=== PATIENT | male | born 1955 | race Asian ===

== ENCOUNTER 2019-03-13 20:11 | Emergency (ER) | payer OTHER ==
[~2019-03-13] VITALS: Ht 162.6 cm; Wt 59.0 kg
[2019-03-13 21:00] VITALS: BP_SYST 126
--- NOTE | 2019-03-13 22:11 | NUR ---
Pt ambulatory to bed 3 for evaluation
--- NOTE | 2019-03-13 22:11 | NUR ---
DMITRY Soler at bedside examining patient.
--- NOTE | 2019-03-13 22:26 | NUR ---
Pt brought self to ED. Pt awake, alert, oriented x4. Pt states that he was eating fish today, and he feels that he swallowed a small fishbone. Pt states that he feels irritation in the front of his throat, and he thinks it is a fish bone. pt Denies shortness of breath, Chest pain, nausea, vomiting, diarrhea, dizziness, any other complaints at this time. Pt resting in ED bed, no acute distress. Pt VSS
--- NOTE | 2019-03-13 22:35 | NUR ---
Pt given viscous lidocaine to swish/gargle. Pt performed gargle and spit medication out into receptacle. Pt tolerated prodecure well. Pt stated relief from pain.
[2019-03-13 22:45] VITALS: BP_SYST 126
[2019-03-13] MEDS ORDERED: LIDOCAINE VISCOUS 2%, 15 ML UDC MM ONE (22:45)
--- NOTE | 2019-03-13 22:45 | NUR ---
Patient given written and verbal discharge instructions and verbalizes understanding. ER MD discussed with patient the results and treatment provided, ER MD explained the patient that there was no foreign body present on CT scan. Patient in stable condition. ID arm band removed. No IV No RX given. Patient educated on pain management and to follow up with PMD. Pain Scale 0/10. Opportunity for questions provided and answered.
--- NOTE | 2019-03-13 23:00 | NUR ---
Note undone in EDM - 03/14/19 at 0450 by [email or web address] Pt given viscous lidocaine to swish/gargle. Pt performed gargle and spit medication out into receptacle. Pt tolerated prodecure well. Pt stated relief from pain.
== END 2019-03-13 22:45 | disposition home or self-care (01) ==
LOC: SED 20:11
DX: T18.9XXA Foreign body of alimentary tract, part unspecified, initial encounter (principal); I10 Essential (primary) hypertension; X58.XXXA Exposure to other specified factors, initial encounter; Y93.89 Activity, other specified; Y92.89 Other specified places as the place of occurrence of the external cause; Y99.8 Other external cause status
CPT/HCPCS: 70490; 99284; J2001

== ENCOUNTER 2020-08-14 11:03 | Emergency (ER) | payer OTHER ==
[~2020-08-14] VITALS: Ht 162.6 cm; Wt 63.5 kg
[2020-08-14 11:14] VITALS: BP_SYST 146
[2020-08-14 13:01] VITALS: BP_SYST 146
== END 2020-08-14 13:01 | disposition home or self-care (01) ==
LOC: SED 11:03
DX: H61.22 Impacted cerumen, left ear (principal); I10 Essential (primary) hypertension
CPT/HCPCS: 99282